=== PATIENT | male | born 1980 | race Two or more races ===

== ENCOUNTER 2025-03-05 21:26 | Emergency (ER) | payer OTHER, SELFPAY ==
[2025-03-05 21:28] VITALS: BMI 28.7
--- NOTE | 2025-03-05 22:28 | EDNOTE_ITS ---
Lower Extremity Injury RME/HPI General Chief Complaint: Extremity Injury, Lower Stated Complaint: RT KNEE PAIN, INJURED WHILE RUNNING Time Seen by Provider: 03/05/25 22:16 Arrival date/time: 03/05/25 21:26 44 year old male present to emergency room with c/o of right knee injury while running to grabbed his dog. LOCATION: knee SEVERITY: Symptoms are described as being severe with limitations on activities of daily living QUALITY: Symptoms are described as being dull or achy CONTEXT:knee/leg injury DURATION/TIMING: The symptoms started approximately immediately prior to arrival ago and have been constant this then. ASSOCIATED SYMPTOMS: The patient is unable to identify any other associated symptoms. MODIFYING FACTORS: The patient is unable to identify any alleviating or aggravating symptoms. PERTINENT ROS: no fevers, no headache, no neck or chest pain, no unexplained nausea or vomiting, no focal neurological deficits REVIEW OF SYSTEMS: See History of Present Illness - with the exception of those mentioned in the history of present illness, all other systems reviewed and reported as negative GENERAL: In general the patient is awake, interactive, in an emergency department gurney. HEAD/EYES/EARS/NOSE/THROAT: normo-cephalic, atraumatic, mucus membranes are moist, anicteric, palpebral conjunctiva is pink, trachea is midline. BACK: normal range of motion without pain. NEUROLOGICAL: cranio-facial features are symmetric, moves all four extremities equally without obvious limitations or weakness. EXTREMITY: right posterior knee tenderness, no calf tenderness, negative Lozoya test no tenderness to palpation over the long bones or large joints of the bilateral upper extremities, no joint swelling, no joint erythema, no signs of trauma, no unilateral leg swelling and no peripheral edema. SKIN: warm, dry, well-perfused, no jaundice, no rash, no telangiectasias or petechia. PSYCH: calm, cooperative, no evidence of psychosis or agitation Related Data Previous Rx's ?Medication ?Instructions ?Recorded cyclobenzaprine 5 mg tablet 5 mg PO TID PRN muscle spa sm #30 03/05/25 tabs naproxen 500 mg tablet 500 mg PO BID PRN pain #30 t abs 03/05/25 Allergies Allergy/AdvReac Type Severity Reaction Status Date / Time No Known Allergies Allergy Verified 03/05/25 21:29 Course Course Course Narrative: PlanMedical Decision Making Patient presenting for evaluation of R knee pain. Vital signs revealed no major abnormalities, no tachycardia, no tachypnea. Diagnosis at this time most consistent with sprain, strain. Diagnostic testing performed: Based on history and exam, discussed that further testing at this time would likely not be of benefit and therefore no further testing was performed. Treatments provided included toradol, brace placement, with improvement in symptoms. Rest, fluids, and [id number] symptomatic treatments were recommended. Recommend over the counter Tylenol and Ibuprofen for fever/general discomfort. Recommend rest, ice, elevation, and compression. Monitor for new or worsening symptoms. Patient prescribed Naproxen/flexeril Follow up in three to five days, present to ER with new or worsening symptoms. Quality Measures none Orders Category Date Time Status Apply knee immobilizer ONCE Care 03/05/25 22:28 Active CYCLObenzaPRINE [Flexeril] Med 03/05/25 22:28 Discontinued 5 mg PO X1 ONE Ketorolac Inj [Toradol Inj] Med 03/05/25 22:28 Discontinued 30 mg IM X1 ONE Extremity Injury, Lower Patient data External records reviewed:: None Clinical information provided by:: patient and spouse Social determinants that could affect healthcare access:: none Patient has the following chronic illnesses:: as stated in chart How is presenting disease/condition affected by chronic disease/condition?: unef fected by Evaluation data The following diagnostics were reviewed and interpreted by me:: other (specify) (none ) Lab and/or radiology exams considered but not ordered:: n/a Interpretation Summary: n/a Medications / Prescriptions Medications or Prescriptions considered but not ordered:: n/a Medication administrations:: Medication Administration History Discontinued Medications Cyclobenzaprine HCl (Cyclobenzaprine 5 Mg Tablet) 5 mg PO X1 ONE Stop: 03/05/25 22:29 Ketorolac Tromethamine (Ketorolac Inj 60 Mg/2 Ml Vial) 30 mg IM X1 ONE Stop: 03/05/25 22:29 n/a Consultations Consultation(s) initiated? (list below): No Diagnosis Extremity Injury, Lower Differential Diagnosis: acute internal derangement of knee and other (strain/sprain, ) Most likely diagnosis given after review of the tests above:: knee sprain/strain Admission Indicated Admission indicated?: not indicated Admission Request Was there a request for admission?: No Disposition Plan Disposition Plan: Discharge Discharge Attestation Discharge Attestation: The patient and all family members were given an opportunity to ask questions and understood the discharge instructions. Discharge instructions specifically effects, indications for sooner follow up or return to the emergency department, and the expected course of current diagnosis. Patient condition: Stable Discharge Plan Plan Patient Disposition: HOME (Self Care) Health Concerns: Follow with PMD as directed Return to ED if sx worsen Prescriptions/Referrals Prescriptions/Med Rec: New cyclobenzaprine 5 mg tablet 5 mg PO TID PRN (Reason: muscle spasm) Qty: 30 0RF naproxen 500 mg tablet 500 mg PO BID PRN (Reason: pain) Qty: 30 0RF Problem List Clinical Impression: Sprain of knee Patient/Caregiver Discharge Instructions Education Materials: Self-Care for Strains and Sprains, ED Knee Sprain Print Language: Haitian Stand Alone Forms: Rosalie Award Info., Patient Portal Info Letter
[2025-03-05] MEDS: CYCLObenzaPRINE 5 MG TABLET PO (23:05)
[2025-03-05] MEDS: KETOROLAC INJ 60 MG/2 ML VIAL 30 MG IM (23:06)
== END 2025-03-05 23:09 | disposition home or self-care (01) ==
PROVIDERS: Emergency Provider Emergency Medicine
DX: S83.91XA Sprain of unspecified site of right knee, initial encounter (principal); X58.XXXA Exposure to other specified factors, initial encounter; Y93.02 Activity, running
CPT/HCPCS: 96372; 99283; J1885; A9270